=== PATIENT | male | born 1980 | race African-American/Black ===

== ENCOUNTER 2023-05-22 21:58 | Emergency (ER) | payer BC, SELFPAY ==
--- NOTE | ~2023-05-22 | US_ITS ---
EXAMINATION: US scrotum doppler DATE: 05/22/2023 23:13 INDICATION: Testicular pain. TECHNIQUE: Grayscale and Doppler ultrasound images of the testes were obtained. COMPARISON: None. FINDINGS: The right testis measures 4.1 x 1.7 x 2.9 cm. The left testis measures 3.6 x 2.0 x 2.7 cm. There is normal vascular flow to both testes. The right epididymis demonstrates a 5 mm cyst. The left epididymis is normal with normal vascular flow. There is a small right hydrocele. There is no varico rhiannon. IMPRESSION: 1. Small right hydrocele. Reviewed, dictated and finalized at location A. IMPRESSION: 1. Small right hydrocele.
[2023-05-22 22:26] VITALS: BP 156/99; PULSE 52; RESP 18; TEMP 36.2; O2SAT 100
--- NOTE | 2023-05-22 22:30 | PC.NURSE ---
contacted XR about pt. need US. states they will call US in
[2023-05-22 23:47] VITALS: BP 160/81; PULSE 58; RESP 15; TEMP 36.6; O2SAT 100
[2023-05-23 00:12] LABS: Appearance Urine Clear (Clear); Bilirubin Urine Negative (Negative); Blood Urine Negative (Negative); Color Urine Yellow (Yellow); Glucose Urine UA Negative (Negative); Ketones Urine Negative (Negative); Leukocyte Esterase Ur Negative LEU/UL (Negative); Nitrate Urine Negative (Negative); Protein Urine Negative (Negative); Specific Grav Ur 1.024 (1.001-1.035)
[2023-05-23 00:23] LABS: Add Urine Microscopic? NO
--- NOTE | 2023-05-23 00:37 | ED.MALEGU ---
HPI - Male Genitourinary General Chief complaint: Urogenital-Male Stated complaint: testicle pain Time Seen by Provider: 05/22/23 23:47 Source: patient Mode of arrival: ambulatory Limitations: no limitations History of Present Illness HPI Narrative: 42-year-old male presents today for concerns of testicular pain going on for couple weeks now. Denies any dysuria, blood in the urine, painful ejaculation, or blood in the semen. Patient denies any swelling or redness to the testicles. Patient states the pain is worse at night. Patient is in a long-term relationship but is not sure if it is monogamous. Has recently been treated at urgent care for STIs. MD Complaint: testicle pain Related Data Allergies Allergy/AdvReac Type Severity Reaction Status Date / Time Bumble Bee Allergy Severe DIFFICULTY Uncoded 05/22/23 22:29 BREATHING, CHEST TIGHTNESS, DIZZINESS Review of Systems Review of Systems: All systems reviewed & are unremarkable except as noted in HPI and below Exam Const: General: cooperative, healthy appearing, comfortable, no acute distress and well developed Orientation/consciousness: patient oriented x3 HENMT: Head: normal to inspection Eyes: General: appearance normal, both eyes and all related structures Resp: Effort & Inspection: normal respiratory effort and able to speak in complete sentences Auscultation: clear to auscultation bilaterally Cardio: Rate: regular rate Rhythm: regular rhythm Heart sounds: S1 normal heart sound present and S2 normal heart sound present : Male General Exam: Yes normal external exam, No edema, No erythema, No hernia and No inguinal lymphadenopathy Penis: Yes normal penis and Yes circumcised Meatus: meatus normal and no meatla discharge Scrotum: scrotum normal Neuro: General: patient oriented x3 Course Vital Signs Vital signs: Vital Signs Temperature 97.1 F L 05/22/23 22:26 Pulse Rate 52 L 05/22/23 22:26 Respiratory Rate 18 05/22/23 22:26 Blood Pressure 156/99 H 05/22/23 22:26 Pulse Oximetry 100 05/22/23 22:26 Oxygen Delivery Room Air 05/22/23 22:26 Temperature 97.8 F 05/22/23 23:47 Pulse Rate 58 L 05/22/23 23:47 Respiratory Rate 15 05/22/23 23:47 Blood Pressure 160/81 H 05/22/23 23:47 Pulse Oximetry 100 05/22/23 23:47 Oxygen Delivery Room Air 05/22/23 22:26 MDM - Male Genitourinary MDM Narrative Medical decision making narrative: 42-year-old male HPI as noted. Previously treated for STIs recently. Presents with persistent testicular pain. Ultrasound ordered to rule out acute issues. Ultrasound shows no acute abnormality, no torsion. UTI without signs of urinary tract infection. No acute process is seen patient to be discharged and follow-up with urology. Differential Diagnosis Differential diagnosis: Likely urinary tract infection, epididymitis, acute retention of urine and other (Urinary tract infection, sexually transmitted infection.) Medical Records Attestation: I reviewed the patient's medical records. Lab Data Labs: Lab Results 05/23/23 Range/Units 00:06 Urine Color Yellow (Yellow) Urine Appearance Clear (Clear) Urine pH 6.0 (5.0-9.0) Ur Specific [place] 1.024 (1.001-1.035) Urine Protein Negative (Negative) mg/dL Urine Glucose (UA) Negative (Negative) mg/dL Urine Ketones Negative (Negative) mg/dL Ur Blood (Man) Negative (Negative) Urine Nitrate Negative (Negative) Urine Bilirubin Negative (Negative) Urine Urobilinogen 1.0 (<2.0) mg/dL Leukocyte Esterase Rfl Negative (Negative) CORTEZ/UL Imaging Data Attestation: I personally reviewed and interpreted this imaging study as follows: Radiologist's impression: Stat rad reading of ultrasound No acute abnormality No torsion Discharge Plan Discharge Clinical Impression: Cyst, epididymis, Testicle pain Patient Disposition: Home, Self-Care Condition: Stable Instructions: Ant
== END 2023-05-23 01:04 | disposition home or self-care (01) ==
PROVIDERS: Emergency Provider Nurse Practitioner Family
DX: N50.3 Cyst of epididymis (principal)
CPT/HCPCS: 76870; 81003; 93976; 99284